=== PATIENT | female | born 1940 | race Caucasian/White ===

== ENCOUNTER 2021-10-24 19:00 | Inpatient (IN) ==
[2021-10-24 19:36] LABS: Basophils # (auto) 0.05 K/uL (0-0.2); Basophils % (auto) 0.6 %; Eosinophils # (auto) 0.07 K/uL (0-0.50); Eosinophils % (auto) 0.8 %; Hematocrit (blood only) 40.8 % (34.1-44.9); Hemoglobin 13.2 g/dl (12.0-16.0); Immature Granulocytes # (auto) 0.02 K/uL (0.00-0.02); Immature Granulocytes % (auto) 0.2 %; Lymphocytes # (auto) 3.16 K/uL (1.2-3.4); Lymphocytes % (auto) 37.6 %; Mean Corpuscular Hemoglobin 28.9 pg (25.0-34.0); Mean Corpuscular Hgb Conc 32.4 g/dL (32.0-36.0); Mean Corpuscular Volume 89.5 fL (80.0-100.0); Mean Platelet Volume 8.7 fL (9.4-12.3); Monocytes # (auto) 0.47 K/uL (0.24-0.82); Monocytes % (auto) 5.6 %; Neutrophils # (auto) 4.64 K/uL (1.4-6.5); Neutrophils % (auto) 55.2 %; Platelet Count 253 K/uL (130-400); RDW Coefficient of Variation 13.5 % (11.5-14.5); RDW Standard Deviation 44.2 fL (36.4-46.3); Red Blood Count 4.56 M/uL (3.93-5.22); White Blood Count 8.41 K/ul (4.8-10.8)
[2021-10-24 19:51] LABS: INR 0.9 (0.9-1.1); Partial Thromboplastin Ratio 0.9; Partial Thromboplastin Time 25.6 Seconds (21.0-31.0); Prothrombin Time 10.1 Seconds (9.0-12.0)
[2021-10-24 19:56] LABS: Alanine Aminotransferase 22 U/L (7-52); Albumin Globulin Ratio 1.2 (0.9-2); Albumin Level 4.1 gm/dl (3.4-5.0); Alkaline Phosphatase 109 U/L (34-104); Anion Gap 9 (3-11); Aspartate Aminotransferase 25 U/L (13-39); BUN Creatinine Ratio 22.9 (10-20); Bilirubin,Total 0.6 mg/dl (0.2-1.0); Blood Urea Nitrogen 25 mg/dl (6-23); Carbon Dioxide 21 mmol/L (21-32); Chloride 108 mmol/L (98-107); Est GFR (African American) 55.1 ml/min; Est GFR (Non-African American) 47.6 ml/min; Globulin 3.3 gm/dl (2.5-4.0); Glucose 154 mg/dl (70-99(Fasting)); Sodium 138 mmol/L (136-145); Total Protein 7.4 gm/dl (6.0-8.3)
[2021-10-24 20:04] LABS: Troponin I High Sensitivity 1513.3 pg/ml (0-14)
[2021-10-24] MEDS ORDERED: ASPIRIN CHEW 324 MG PO STA (20:18)
[2021-10-24] MEDS ORDERED: NITROGLYCERIN 2% OINTMENT 30GM TUBE EXT STA ×2 (20:20→21:04)
[2021-10-24] MEDS ORDERED: Heparin IV Adult Wt-Based Low-Dose WITH Bolus Protocol IV STA (20:20)
[2021-10-24] MEDS ORDERED: HEPARIN SOD (PORCINE) 1000 UNIT/ML IV ONE ×2 (20:35→21:15)
[2021-10-24] MEDS ORDERED: HEPARIN SODIUM/DEXTROSE 25,000 UNITS/500 ML BAG IV SCH (20:45)
[2021-10-24] MEDS ORDERED: Heparin IV Adult Wt-Based Low-Dose WITH Bolus Protocol IV SCH (20:45)
[2021-10-24] MEDS ORDERED: OPTIRAY 300 500mL IV ONE (20:52)
--- NOTE | 2021-10-24 20:59 | Emergency Department Note ---
History of Present Illness General Chief Complaint: Chest Pain Stated Complaint: POSSIBLE HEART ATTACK, CHEST PAIN, FATIGUE, Source: patient and friends (at bedside) Mode of arrival: ambulatory Limitations: no limitations History of Present Illness Provider Complaint: chest pain Onset (ago): hour(s) 10 Duration: intermittent Onset: during exertion Pain Location: substernal Severity: moderate Quality: + heaviness Relieved By: + nothing Context: + recent travel ([place], last week) Associated symptoms: + nausea and + dyspnea Treatments prior to arrival: none This patient is an 81-year-old female who presents emergency department with approximately 10 hours of substernal chest pain. Pain had a sudden onset while ambulating discharged today. The patient denies any history of heart disease. She did recently return from a trip to [place] where she states she was in "[employer], [employer] and buses." Patient denies any recent illnesses including fevers, cough, abdominal pain, vomiting or diarrhea. She states her younger brother does have 2 cardiac stents. The patient saw a physician several years ago through [facility] [place] person has since retired and she has not seen anyone since. She did not take any aspirin prior to arrival. She has not taken any medications in attempt to alleviate the discomfort. Home Medications Medication Instructions Recorded Confirmed Type apixaban 5 mg tablet (Eliquis) 5 mg PO BID #60 tabs 10/26/21 10/29/21 Rx atorvastatin 40 mg tablet 40 mg PO HS #30 tabs 10/26/21 10/29/21 Rx clopidogrel 75 mg tablet 75 mg PO QAM #30 tabs 10/26/21 10/29/21 Rx losartan 25 mg tablet 25 mg PO HS #30 tabs 10/26/21 10/29/21 Rx metoprolol succinate 25 mg 25 mg PO QAM #30 tabs 10/26/21 10/29/21 Rx tablet,extended release 24 hr adjuvant AS01B (PF)vial 1 of 2 0.5 ml IM ONCE #0.5 mL 10/29/21 10/29/21 Rx (Shingrix Adjuvant Component (PF) intramuscular suspension) Allergies Allergy/AdvReac Type Severity Reaction Status Date / Time Penicillins Allergy Mild RASH Verified 10/29/21 13:03 Poison Jeb Extract/Poison Allergy Unknown POISON Uncoded 10/29/21 13:03 [place] Extra JEB-RASH Past Med/Surg History Medical History Heart murmur Ovarian cancer Surgical History H/O: hysterectomy 2 surgeries for ovarian cancer History of cataract surgery History of surgery retina tear History of surgery 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 Family History Father Hearing loss Brother Stroke Sister Allergies Grandmother Heart disease Mother Heart disease Other Cancer Denies family history of No family history of adverse response to anesthesia No family history of bleeding disorder Hypertension Asthma Social History (Updated 10/29/21 @ 13:48 by POLINA Dao) Smoking Status: Never smoker Second Hand Exposure: Yes; Hx Alcohol Use: Yes Alcohol type: wine Alcohol Intake Frequency: Monthly or Less Hx Substance Use: No Preferred Language: Ukrainian Communication Ability: Effective Hearing Ability: Normal Check Embosser Required: No Beliefs That Will Affect Care: None marital status: / Current Living Situation: Alone current occupational status: retired Feels Safe at Home: Yes Childhood Exposure to Second-Hand Smoke: Yes caffeine: No Dental Care, Regularly: Yes Physical Activity Frequency: Daily Seatbelt Use: never Sunscreen Use: No Assistive Devices: None Review of Systems See HPI for pertinent positives & negatives. and A total of 10 systems reviewed and were otherwise negative Physical Exam Vital Signs Vital Signs - 24 hr 10/24/21 19:04 10/24/21 20:09 10/24/21 20:09 Temperature 36 C L Temperature Source Temporal Artery Scan Pulse Rate 94 H Respiratory Rate 18 Respiratory Effort / Characteristics Non-Labored Spontaneous Respiratory Depth Normal Respiratory Pattern Regular Blood Pressure 152/74 H Blood Pressure Mean 100 Pulse Oximetry 92 97 Oxygen Delivery Method Room Air Room Air Room Air Sepsis Recent Fever Within 48 Hours No Sepsis New/Unexplained Change in Mental Status N/A Sepsis Action Taken by Nursing No Action Required 10/24/21 19:08 Temperature Temperature Source Pulse Rate Respiratory Rate Respiratory Effort / Characteristics Respiratory Depth Respiratory Pattern Blood Pressure Blood Pressure Mean Pulse Oximetry Oxygen Delivery Method Room Air Sepsis Recent Fever Within 48 Hours Sepsis New/Unexplained Change in Mental Status Sepsis Action Taken by Nursing Vital signs reviewed. General: Well-appearing []81-year-old female, in no significant distress. HEENT: No scleral icterus, PERRLA, neck supple. Atraumatic. Cardiovascular: Regular rate and rhythm, no extra sounds. Pulmonary: Crackles to auscultation bilaterally, normal work of breathing. Abdomen: Soft, nontender, nondistended, positive bowel sounds. Musculoskeletal: Atraumatic, no peripheral edema. Neurologic: Patient awake alert and oriented x 3, speech is clear Skin: Warm, dry, no rash Course Administered Medications Discontinued Medications Apixaban (Apixaban 5 Mg Tablet) 5 mg PO BID [facility] Stop: 11/25/21 09:29 Last Admin: 10/26/21 11:10 Dose: 5 mg Documented By: THEO Aspirin (Aspirin Chew 324 Mg) 324 mg PO NOW [facility] Stop: 10/24/21 20:19 Last Admin: 10/24/21 20:23 Dose: 324 mg Documented By: IDALMIS Aspirin (Aspirin 81 Mg Ectab) 81 mg PO [place] Stop: 11/24/21 08:59 Last Admin: 10/26/21 08:39 Dose: 81 mg Documented By: Admin: 10/25/21 07:30 Dose: 81 mg Documented By: OSMAR Atorvastatin Calcium (Atorvastatin 40 Mg Tab) 40 mg PO [place] Stop: 11/24/21 08:59 Last Admin: 10/26/21 08:39 Dose: 40 mg Documented By: Admin: 10/25/21 07:30 Dose: 40 mg Documented By: OSMAR Clopidogrel Bisulfate (Clopidogrel Bisulfate 300 Mg Tab) Confirm Administered Dose 600 mg .ROUTE .STK-MED ONE Stop: 10/25/21 01:03 Last Admin: 10/25/21 01:07 Dose: 600 mg Documented By: CUCO Clopidogrel Bisulfate (Clopidogrel Bisulfate 75 Mg Tab) 75 mg PO [facility] Stop: 11/24/21 08:59 Last Admin: 10/26/21 08:39 Dose: 75 mg Documented By: Admin: 10/25/21 11:20 Dose: 75 mg Documented By: OSMAR Fentanyl Citrate (Fentanyl Citrate 100 Mcg/2 Ml Vial) Confirm Administered Dose 100 mcg .ROUTE .STK-MED ONE Stop: 10/25/21 00:07 Last Admin: 10/25/21 06:43 Dose: Not Given Documented By: ABHISHEK Furosemide (Furosemide 40 Mg/4 Ml Vial) 40 mg IV ONE ONE Stop: 10/24/21 21:04 Last Admin: 10/24/21 21:09 Dose: 40 mg Documented By: SS Heparin Sodium (Porcine) (Heparin Sod (Porcine) 1000 Unit/Ml) 3,000 units IV NOW ONE Stop: 10/24/21 21:16 Last Admin: 10/24/21 21:16 Dose: 3,000 units Documented By: SS Co-signed By: JUNIOR Heparin Sodium (Porcine) (Heparin (Porcine) 1000 Unit/Ml 10 Ml ([employer] Combination Use Onl y)) Confirm Administered Dose 10,000 units .ROUTE .STK-MED ONE Stop: 10/25/21 00:07 Last Admin: 10/25/21 06:44 Dose: Not Given Documented By: CR Heparin Sodium/Dextrose (Heparin Iv Adult Wt-Based Low-Dose With Bolus Protocol) 1 each IV NOW STA; Protocol Stop: 10/24/21 20:21 Last Admin: 10/24/21 21:29 Dose: Not Given Documented By: SS Heparin Sodium/Sodium Chloride (Heparin In Nss Infusion 1000 Unit/500 Ml (2 U/Ml) Bag) Confirm Administered Dose 3,000 units IV .STK-MED ONE Stop: 10/25/21 00:07 Last Admin: 10/25/21 06:44 Dose: Not Given Documented By: CR Heparin Sodium/Dextrose (Heparin Sodium/Dextrose) 25,000 units in 500 mls @ 13 mls/hr IV .Q24H IQRA; Protocol Stop: 11/23/21 20:44 Last Titration: 10/25/21 07:44 Dose: 0 units/hr, 0 mls/hr Documented By: FARRAH Co-signed By: LEMUEL Admin: 10/24/21 21:17 Dose: 650 units/hr, 13 mls/hr Documented By: SS Co-signed By: JUNIOR Ioversol (Optiray 300 500ml) 114 ml IV ONCE ONE Stop: 10/24/21 20:53 Last Admin: 10/24/21 20:52 Dose: 114 ml Documented By: YUMIKO Losartan Potassium (Losartan Potassium 25 Mg Tab) 25 mg PO QAM IQRA Stop: 11/24/21 08:59 Last Admin: 10/26/21 08:38 Dose: 25 mg Documented By: Admin: 10/25/21 08:47 Dose: Not Given Documented By: OO Metoprolol Tartrate (Metoprolol Tartrate 25 Mg Tab) 12.5 mg PO BID IQRA Stop: 11/24/21 08:59 Last Admin: 10/26/21 08:38 Dose: 12.5 mg Documented By: Admin: 10/25/21 20:38 Dose: 12.5 mg Documented By: Admin: 10/25/21 08:47 Dose: Not Given Documented By: OO Midazolam HCl (Midazolam Hcl 1 Mg/Ml 2ml Vial) Confirm Administered Dose 2 mg .ROUTE .STK-MED ONE Stop: 10/25/21 00:07 Last Admin: 10/25/21 06:44 Dose: Not Given Documented By: CR Nicardipine HCl (Nicardipine Hcl Inj 2.5 Mg/Ml 10 Ml Amp) Confirm Administered Dose 25 mg .ROUTE .STK-MED ONE Stop: 10/25/21 00:07 Last Admin: 10/25/21 06:45 Dose: Not Given Documented By: CR Nitroglycerin (Nitroglycerin 2% Ointment 30gm Tube) 0.5 inch EXT NOW STA Stop: 10/24/21 20:21 Last Admin: 10/24/21 20:24 Dose: 0.5 inch Documented By: SS Nitroglycerin (Nitroglycerin 2% Ointment 30gm Tube) 1 inch EXT NOW STA Stop: 10/24/21 21:05 Last Admin: 10/24/21 21:09 Dose: 1 inch Documented By: SS Nitroglycerin/Dextrose (Nitroglycerin/D5w 100mcg/Ml 20ml Syr) Confirm Admi nistered Dose 2,000 mcg .ROUTE .STK-MED ONE Stop: 10/25/21 00:08 Last Admin: 10/25/21 06:45 Dose: Not Given Documented By: CR Medical Decision Making Differential Diagnosis Cardiac ischemia, aortic dissection, pulmonary embolism, pneumothorax, pneumonia, pericarditis, myocarditis, esophageal rupture, GERD, cholecystitis, pancreatitis, musculoskeletal, as well as other pathologies. Medical Records Attestation: I reviewed the patient's medical records. Home Medications Current Medication List: was personally reviewed by me Laboratory Data Attestation: I reviewed the patient's lab results. Result diagrams: 10/26/21 05:57 10/26/21 05:57 Labs: Lab Results 10/24/21 10/24/21 10/24/21 Range/Units :22 19:22 19:22 WBC 8.41 (4.8-10.8) K/ul RBC 4.56 (3.93-5.22) M/uL Hgb 13.2 (12.0-16.0) g/dl Hct 40.8 (34.1-44.9) % MCV 89.5 (80.0-100.0) fL MCH 28.9 (25.0-34.0) pg MCHC 32.4 (32.0-36.0) g/dL RDW Std Deviation 44.2 (36.4-46.3) fL RDW Coeff of Dash 13.5 (11.5-14.5) % Plt Count 253 (130-400) K/uL MPV 8.7 L (9.4-12.3) fL Immature Gran % (Auto) 0.2 % Neut % (Auto) 55.2 % Lymph % (Auto) 37.6 % [place] % (Auto) 5.6 % Eos % (Auto) 0.8 % Baso % (Auto) 0.6 % Neut # (Auto) 4.64 (1.4-6.5) K/uL Lymph # (Auto) 3.16 (1.2-3.4) K/uL [place] # (Auto) 0.47 (0.24-0.82) K/uL Eos # (Auto) 0.07 (0-0.50) K/uL Baso # (Auto) 0.05 (0-0.2) K/uL Immature Gran # (Auto) 0.02 (0.00-0.02) K/uL PT 10.1 (9.0-12.0) Seconds INR 0.9 (0.9-1.1) APTT 25.6 (21.0-31.0) Seconds PTT Ratio 0.9 ABG pH (7.35-7.45) ABG pCO2 (35-46) mmHg ABG pO2 (80-95) mmHg ABG HCO3 (19-24) mmol/L ABG O2 Saturation (90-95) % ABG Base Excess (-9-1.8) mEq/L Yohan Test (Pos) Oxygen Given Sodium 138 (136-145) mmol/L Potassium 4.0 (3.5-5.1) mmol/L Chloride 108 H (98-107) mmol/L Carbon Dioxide 21 (21-32) mmol/L Anion Gap 9 (3-11) BUN 25 H (6-23) mg/dl Creatinine 1.09 (0.6-1.2) mg/dl Est Cr Clr Drug Dosing Not Reportable Est GFR ( Amer) 55.1 ml/min Est GFR (Non-Af Amer) 47.6 ml/min BUN/Creatinine Ratio 22.9 H (10-20) Glucose 154 H (70-99(Fasting)) mg/dl Estimat Average Glucose mg/dl Hemoglobin A1c (4.5-5.6) % Calcium 9.0 (8.5-10.1) mg/dl Total Bilirubin 0.6 (0.2-1.0) mg/dl AST 25 (13-39) U/L ALT 22 (7-52) U/L Alkaline Phosphatase 109 H (34-104) U/L Troponin I High Sens 1513.3 H* (0-14) pg/ml B-Natriuretic Peptide (0-100) pg/ml Total Protein 7.4 (6.0-8.3) gm/dl Albumin 4.1 (3.4-5.0) gm/dl Globulin 3.3 (2.5-4.0) gm/dl Albumin/Globulin Ratio 1.2 (0.9-2) Triglycerides (0-150) mg/dl Cholesterol (0-200) mg/dl LDL Cholesterol, Calc mg/dl VLDL Cholesterol, Calc (0-30) mg/dl HDL Cholesterol mg/dl Cholesterol/HDL Ratio (0-5) SARS-CoV-2, RNA, NAAT (NEGATIVE) 10/24/21 10/24/21 10/24/21 Range/Units 19:22 19:22 21:28 WBC (4.8-10.8) K/ul RBC (3.93-5.22) M/uL Hgb (12.0-16.0) g/dl Hct (34.1-44.9) % MCV (80.0-100.0) fL MCH (25.0-34.0) pg MCHC (32.0-36.0) g/dL RDW Std Deviation (36.4-46.3) fL RDW Coeff of Dash (11.5-14.5) % Plt Count (130-400) K/uL MPV (9.4-12.3) fL Immature Gran % (Auto) % Neut % (Auto) % Lymph % (Auto) % [place] % (Auto) % Eos % (Auto) % Baso % (Auto) % Neut # (Auto) (1.4-6.5) K/uL Lymph # (Auto) (1.2-3.4) K/uL [place] # (Auto) (0.24-0.82) K/uL Eos # (Auto) (0-0.50) K/uL Baso # (Auto) (0-0.2) K/uL Immature Gran # (Auto) (0.00-0.02) K/uL PT (9.0-12.0) Seconds INR (0.9-1.1) APTT (21.0-31.0) Seconds PTT Ratio ABG pH (7.35-7.45) ABG pCO2 (35-46) mmHg ABG pO2 (80-95) mmHg ABG HCO3 (19-24) mmol/L ABG O2 Saturation (90-95) % ABG Base Excess (-9-1.8) mEq/L Yohan Test (Pos) Oxygen Given Sodium (136-145) mmol/L Potassium (3.5-5.1) mmol/L Chloride (98-107) mmol/L Carbon Dioxide (21-32) mmol/L Anion Gap (3-11) BUN (6-23) mg/dl Creatinine (0.6-1.2) mg/dl Est Cr Clr Drug Dosing Est GFR ( Amer) ml/min Est GFR (Non-Af Amer) ml/min BUN/Creatinine Ratio (10-20) Glucose (70-99(Fasting)) mg/dl Estimat Average Glucose 123 mg/dl Hemoglobin A1c 5.9 H (4.5-5.6) % Calcium (8.5-10.1) mg/dl Total Bilirubin (0.2-1.0) mg/dl AST (13-39) U/L ALT (7-52) U/L Alkaline Phosphatase (34-104) U/L Troponin I High Sens (0-14) pg/ml B-Natriuretic Peptide (0-100) pg/ml Total Protein (6.0-8.3) gm/dl Albumin (3.4-5.0) gm/dl Globulin (2.5-4.0) gm/dl Albumin/Globulin Ratio (0.9-2) Triglycerides 118 (0-150) mg/dl Cholesterol 324 H (0-200) mg/dl LDL Cholesterol, Calc 228 mg/dl VLDL Cholesterol, Calc 24 (0-30) mg/dl HDL Cholesterol 72 mg/dl Cholesterol/HDL Ratio 4.5 (0-5) SARS-CoV-2, RNA, NAAT NEGATIVE (NEGATIVE) 10/24/21 10/24/21 10/24/21 Range/Units 21:33 21:33 22:11 WBC (4.8-10.8) K/ul RBC (3.93-5.22) M/uL Hgb (12.0-16.0) g/dl Hct (34.1-44.9) % MCV (80.0-100.0) fL MCH (25.0-34.0) pg MCHC (32.0-36.0) g/dL RDW Std Deviation (36.4-46.3) fL RDW Coeff of Dash (11.5-14.5) % Plt Count (130-400) K/uL MPV (9.4-12.3) fL Immature Gran % (Auto) % Neut % (Auto) % Lymph % (Auto) % [place] % (Auto) % Eos % (Auto) % Baso % (Auto) % Neut # (Auto) (1.4-6.5) K/uL Lymph # (Auto) (1.2-3.4) K/uL [place] # (Auto) (0.24-0.82) K/uL Eos # (Auto) (0-0.50) K/uL Baso # (Auto) (0-0.2) K/uL Immature Gran # (Auto) (0.00-0.02) K/uL PT (9.0-12.0) Seconds INR (0.9-1.1) APTT (21.0-31.0) Seconds PTT Ratio ABG pH 7.41 (7.35-7.45) ABG pCO2 31 L (35-46) mmHg ABG pO2 92 (80-95) mmHg ABG HCO3 20 (19-24) mmol/L ABG O2 Saturation 98.4 H (90-95) % ABG Base Excess -4.0 (-9-1.8) mEq/L Yohan Test Pos (Pos) Oxygen Given 35% Sodium (136-145) mmol/L Potassium (3.5-5.1) mmol/L Chloride (98-107) mmol/L Carbon Dioxide (21-32) mmol/L Anion Gap (3-11) BUN (6-23) mg/dl Creatinine (0.6-1.2) mg/dl Est Cr Clr Drug Dosing Est GFR ( Amer) ml/min Est GFR (Non-Af Amer) ml/min BUN/Creatinine Ratio (10-20) Glucose (70-99(Fasting)) mg/dl Estimat Average Glucose mg/dl Hemoglobin A1c (4.5-5.6) % Calcium (8.5-10.1) mg/dl Total Bilirubin (0.2-1.0) mg/dl AST (13-39) U/L ALT (7-52) U/L Alkaline Phosphatase (34-104) U/L Troponin I High Sens 1785.1 H* (0-14) pg/ml B-Natriuretic Peptide 844 H (0-100) pg/ml Total Protein (6.0-8.3) gm/dl Albumin (3.4-5.0) gm/dl Globulin (2.5-4.0) gm/dl Albumin/Globulin Ratio (0.9-2) Triglycerides (0-150) mg/dl Cholesterol (0-200) mg/dl LDL Cholesterol, Calc mg/dl VLDL Cholesterol, Calc (0-30) mg/dl HDL Cholesterol mg/dl Cholesterol/HDL Ratio (0-5) SARS-CoV-2, RNA, NAAT (NEGATIVE) Blood Pressure Blood Pressure Findings: Elevated blood pressure Blood Pressure Disposition: further management by hospitalist MDM Narrative This patient was evaluated and appeared to be in some discomfort. IV access was obtained and laboratory work was drawn. Patient's laboratory work had been resulted prior to my evaluation and a notable elevation in the troponin was clear. EKG reveals nonspecific ST changes. Patient was started on a heparin drip, she was given nitroglycerin for some respiratory discomfort and congestion on chest x-ray. IV Lasix was ordered. Patient was given supplemental oxygen and ordered BiPAP. She had been given aspirin by mouth. COVID test was performed and negative. Review of the chest was performed to rule out PE due to the recent travel to [place] and shortness of breath. Study was negative. The hospitalist service, Dr. Moreno and resident, were consulted immediately for admission and further management. Impression & Plan Non-ST elevation (NSTEMI) myocardial infarction, Acute respiratory failure with hypoxia, Congestive heart failure (CHF) Critical Care Time Critical Care Time: Yes Total Critical Care Time: 35 I have personally spent greater than 35 minutes of critical care time in the direct management of this patient. This includes bedside care, interpretation of diagnostic studies, and testing, discussion with consultants, patient, and family members, and other required patient management activities. This 35 minut es is in excess of all separately billable procedures. Discharge Plan Visit Data Chief Complaint: Chest Pain Stated Complaint: POSSIBLE HEART ATTACK, CHEST PAIN, FATIGUE, ED Provider: Lucy Szymanski Discharge Problem: Non-ST elevation (NSTEMI) myocardial infarction, Acute respiratory failure with hypoxia, Congestive heart failure (CHF) Patient Disposition: Admitted As Inpatient Discharge Instructions Interventions: ED Discharge Assessment Last Done: 10/25/21 00:07
[2021-10-24] MEDS ORDERED: FUROSEMIDE 40 MG/4 ML VIAL IV ONE (21:03)
[2021-10-24] MEDS ORDERED: NITROGLYCERIN SL 0.4 MG/TAB TAB SL PRN (21:27)
[2021-10-24 21:47] LABS: HCO3 ABG 20 mmol/L (19-24); Oxygen Saturation ABG 98.4 % (90-95); PCO2 ABG 31 mmHg (35-46); PO2 ABG 92 mmHg (80-95); pH ABG 7.41 (7.35-7.45)
[2021-10-24 21:52] LABS: Allen Test Pos (Pos)
--- NOTE | 2021-10-24 21:56 | History & Physical Report ---
Date of Service October 24, 2021 Assessment & Plan (1) Non-ST elevation (NSTEMI) myocardial infarction: Plan: 81-year-old female without a reported medical history who presented to [facility] for evaluation of substernal chest pain and elevated tr oponin, with subsequent development of hypoxia secondary to pulmonary edema while in the ED. 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 Interstitial edema in the lungs. tiny left pleural effusion. Heart and aorta are unremarkable. No evidence of pneumonia" - Trend troponin - Continue heparin gtt ; received ASA 324 in the ED - Continue nitropaste, morphine PRN - Continue supplemental O2 to maintain SpO2 >94% - Hold on starting BB right now given c/f acute CHF - Check lipids, A1c - TTE ordered - Case discussed with Dr. Arce, interventional cardiology; given her concerning symptoms/presentation, progressive anterior TWAs on serial ECGs, and rising troponins, will proceed with HEART Alert protocol (2) Acute respiratory failure with hypoxia: Plan: Acute Hypoxic Respiratory Failure - Interval development of AHRF following arrival at ED, associated with respiratory distress and orthopnea - CTA: See above. No PE. Pulmonary Edema - Suspect secondary to acute CHF, likely d/t ACS - Lasix 40mg IV x 1 given in ED - will give additional dose as BP allows - Continue CPAP - escalate PRN - Continue nitropaste - Monitor I&O, daily weights - Will likely require fluid, salt restriction when not NPO Plan Diet: NPO Dispo: PCU PPX: Ongoing heparin gtt Code status: Conditional - ok for CPR and cardiac meds/defib, NO intubation, OK for external ventilation. Extensive discussion held at bedside regarding the process of CPR and importance of intubation; she is ok with all interventions except intubation and mechanical ventilation. History of Present Illness Primary Care Provider: NO PCP Patient is a very pleasant 81-year-old female who presented to [facility] for evaluation of substernal chest pain. She said she was at her gnosticism when she began having a very severe, pressure-like substernal chest pain that radiated towards the left side of her chest. She denies ever having this before or any significant heart history. She denies any shortness of breath at that time. When asked if it was worse by exertion, she said "I did not think I was going to make it "walking up the stairs to her gnosticism because the pain and fatigue got worse. She said it got better with rest. Otherwise, denies any radiation to the arm or face, no recent leg pain, no nausea, vomiting, fever, chills, night sweats, or other symptoms. Patient was recently in [place] where she was traveling extensively on planes, trains, and buses. She denies any history of clots, and again, denies any sort of leg discomfort or swelling. Before today, she felt like she was in her normal health. She had no issues sleeping last night. No PND or orthopnea. No dietary changes. In the ED, patient was initially found to be tachycardic and hypertensive to 94 bpm and 152/74, saturating at 92% on room air. She was brought back to the CT scanner for a CT of the chest, when she reported significant shortness of breath when she lie down. This required initiation of supplemental oxygen. Her shortness of breath improved with sitting up. Her admission labs were notable for ABGpH 7.41/PCO2 31/PO2 92/P HCO3 20 on 35% CPAP. Her BMP demonstrated BUN 25/creatinine 1.09. Her initial troponin was 1513. Chest x-ray had the appearance of pulmonary edema, as did the CTA. CTA stat rad revealed: "". By comparison to ECG taken at 1917, repeat ECG at 2116 appears to demonstrate small interval increases in the ST segment in V2, V3. She was given Nitropaste, Lasix 40 mg IV, started on heparin with IV bolus. Allergies Allergy/AdvReac Type Severity Reaction Status Date / Time Penicillins Allergy Mild RASH Verified 03/15/21 09:46 Poison Jeb Extract/Poison Allergy Unknown POISON Uncoded 03/15/21 09:46 [place] Extra JEB-RASH Home Medications Medication Instructions Recorded Confirmed Type No Known Home Medications 03/10/20 03/15/21 History Past Med/Surg History Medical History Heart murmur Ovarian cancer Surgical History H/O: hysterectomy 2 surgeries for ovarian cancer History of cataract surgery History of surgery retina tear History of surgery 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 Family History Father Hearing loss Brother Stroke Sister Allergies Grandmother Heart disease Mother Heart disease Other Cancer Denies family history of No family history of adverse response to anesthesia No family history of bleeding disorder Hypertension Asthma Social History Smoking Status: Never smoker Second Hand Exposure: Yes; Do You Dip or Chew Tobacco: No; Tobacco Cessation Education Requested by Patient: No Hx Alcohol Use: Yes Alcohol type: wine Alcohol Intake Frequency: Monthly or Less Hx Substance Use: No Preferred Language: Zambian Communication Ability: Effective Dye Boarding Machine Operator Required: No Beliefs That Will Affect Care: None marital status: / Current Living Situation: Alone current occupational status: retired Other Information That Helps Us Care for You: No Feels Safe at Home: Yes Safety Concerns: Feels Safe At This Time Assistive Devices: Glasses and Hospital Bed Review of Systems Review of Systems: as per HPI Physical Exam Physical Exam: General: 81-year old female who appears in mild distress secondary to pain HEENT: NCAT. - Eyes - Sclera are white, anicteric, and without injection. - Mouth - MMM - Neck - supple, no appreciable JVD Cardiac: Normal rate and regular rhythm; S1 and S2 present with no murmurs, rubs, or gallops. Pulmonary: Good respiratory effort with symmetric expansion of the chest. Mildly increased effort. No use of accessory muscles. Lungs demonstrated bilateral crackles throughout all hightower. Abdominal: Normoactive bowel sounds. Abdomen was soft, nondistended, and non- tender to palpation. Extremities: Upper and lower extremities are warm and well perfused. No peripheral edema in the lower extremities bilaterally Results & Data Results & Data ([facility]) Vital Signs (Past 12 Hours) Vital Signs Temp Pulse Resp BP Pulse Ox O2 Del Method FiO2 10/24/21 21:30 91 H 29 H 99 10/24/21 21:30 151/95 H 10/24/21 21:20 90 26 H 98 10/24/21 21:17 174/85 H 10/24/21 21:17 88 23 99 10/24/21 21:16 169/115 H 10/24/21 21:16 93 H 23 97 10/24/21 21:10 99 H 20 97 10/24/21 21:03 14 90 10/24/21 21:03 148/120 H 10/24/21 21:02 99 H 15 93 10/24/21 20:46 86 24 95 10/24/21 21:38 89 33 H 97 35 10/24/21 20:45 151/79 H 10/24/21 20:45 93 H 28 H 93 10/24/21 20:30 90 32 H 92 10/24/21 20:30 132/101 H 10/24/21 19:08 Room Air 10/24/21 20:09 Room Air 10/24/21 20:09 97 Room Air 10/24/21 19:04 36 C L 94 H 18 152/74 H 92 Room Air Code Status & VTE Plan VTE Prophylaxis Plan VTE Prophylaxis will be ordered: No Supervising Physician Co-Signing Physician Notes Attending addendum: I have physically seen this patient, have supervised the medical residents activities, and agree with the H&P unless as otherwise noted. Assessment and Plan: Acute non-STEMI- Troponin initially 15.3 with subsequent increase Patient admitted received aspirin 324 mg, and was started heparin IV and f urosemide IV. EKG suggestive of early changes in LAD. After Case was discussed with interventionalist Dr. Ab Arce, patient was taken emergently to Telegraph Service Clerk, he was found to have a 90% acute focal stenosis after D1, that was fixed with a single drug-eluting stent Patient was then taken to telemetry for follow-up care Continuing cardiology medications per Dr. Arce. Critical care time was 40 minutes Resident Activity Tracking Resident Involvement: Resident Care Provided Care Provided: Adult Hospital Medicine
[2021-10-24 22:49] LABS: Chol HDL Ratio 4.5 (0-5)
[2021-10-25] MEDS ORDERED: HEPARIN (PORCINE) 1000 UNIT/ML 10 ML (CATH LAB USE ONLY) ONE (00:06)
[2021-10-25] MEDS ORDERED: fentaNYL citrate 100 MCG/2 ML VIAL ONE (00:06)
[2021-10-25] MEDS ORDERED: MIDAZOLAM HCL 1 MG/ML 2ML VIAL ONE (00:06)
[2021-10-25] MEDS ORDERED: niCARdipine HCL INJ 2.5 MG/ML 10 ML AMP ONE (00:06)
[2021-10-25] MEDS ORDERED: NITROGLYCERIN/D5W 100MCG/ML 20ML SYR ONE (00:07)
--- NOTE | 2021-10-25 00:21 | Pre Anesthesia Assessment ---
Date of Service October 25, 2021 Pre Sedation Assessment Vital Signs Temp Pulse Resp BP Pulse Ox O2 Del Method O2 Flow Rate 10/24/21 23:45 82 28 H 95 Nasal Cannula 4 10/24/21 23:45 122/76 10/24/21 23:30 86 22 96 10/24/21 23:30 124/76 10/24/21 23:15 83 24 97 10/24/21 23:15 126/77 10/24/21 23:00 91 H 23 97 10/24/21 23:00 120/78 10/24/21 22:45 90 23 97 10/24/21 22:45 140/91 10/24/21 22:30 91 H 25 H 95 10/24/21 22:30 132/102 H 10/24/21 22:15 91 H 17 95 10/24/21 22:15 136/81 10/24/21 22:00 95 H 29 H 93 10/24/21 22:00 144/89 H 10/24/21 21:45 146/81 H 10/24/21 21:45 102 H 27 H 97 CPAP 10/24/21 21:30 91 H 29 H 99 10/24/21 21:30 151/95 H 10/24/21 21:20 90 26 H 98 10/24/21 21:17 174/85 H 10/24/21 21:17 88 23 99 10/24/21 21:16 169/115 H 10/24/21 21:16 93 H 23 97 10/24/21 21:10 99 H 20 97 10/24/21 21:03 14 90 10/24/21 21:03 148/120 H 10/24/21 21:02 99 H 15 93 10/24/21 20:46 86 24 95 10/24/21 21:38 89 33 H 97 10/24/21 20:45 151/79 H 10/24/21 20:45 93 H 28 H 93 10/24/21 20:30 90 32 H 92 10/24/21 20:30 132/101 H 10/24/21 19:08 Room Air 10/24/21 20:09 Room Air 10/24/21 20:09 97 Room Air 10/24/21 19:04 96.8 F L 94 H 18 152/74 H 92 Room Air FiO2 10/24/21 23:45 10/24/21 23:45 10/24/21 23:30 10/24/21 23:30 10/24/21 23:15 10/24/21 23:15 10/24/21 23:00 10/24/21 23:00 10/24/21 22:45 10/24/21 22:45 10/24/21 22:30 10/24/21 22:30 10/24/21 22:15 10/24/21 22:15 10/24/21 22:00 10/24/21 22:00 10/24/21 21:45 10/24/21 21:45 10/24/21 21:30 10/24/21 21:30 10/24/21 21:20 10/24/21 21:17 10/24/21 21:17 10/24/21 21:16 10/24/21 21:16 10/24/21 21:10 10/24/21 21:03 10/24/21 21:03 10/24/21 21:02 10/24/21 20:46 10/24/21 21:38 35 10/24/21 20:45 10/24/21 20:45 10/24/21 20:30 10/24/21 20:30 10/24/21 19:08 10/24/21 20:09 10/24/21 20:09 10/24/21 19:04 Cardiovascular RRR, no murmur, no edema Respiratory normal respiratory effort, lungs clear to auscultation Pre-Sedation Airway Assessment Smoking Status: Never smoker Hx Sleep Apnea: No Hx Difficult Intubation: No Short, Thick Neck: No Thyromental Distance: > or= 3.5 Finger Breadths Oral Cavity: + WNL Mallampati Class: III ASA: ASA4 Procedure Planning Contraindications for Sedation: none Current Medications Reviewed: Yes Notes The planned sedation has been discussed with the patient. Informed Consent was obtained. I have identified the patient, determined the appropriateness of sedation and have assessed the patient immediately prior to the procedure. All medicine(s) and interventions are by my order.
--- NOTE | 2021-10-25 00:22 | Cardiology Consultation ---
Date of Consultation October 25, 2021 Assessment & Plan (1) Non-ST elevation (NSTEMI) myocardial infarction: Presentation consistent with high risk ACS and recommend proceeding with urgent cardiac catheterization and likely primary PCI. No apparent contraindications to procedure. Discussed risks, benefits, alternatives of procedure with patient and they are willing to proceed. Given IV heparin in the ED. Further recommendations pending findings of coronary angiography. History of Present Illness History of Present Illness 81-year-old woman here with acute chest pain and elevated troponin/ECG changes consistent with high risk NSTEMI. Patient seen emergently in the ED after heart alert activated after serial ECG changes. No prior cardiac history. Patient is on no medications currently and denies any other medical issues. She is active at baseline walking 2-1/2 miles almost every day. Recently returned from a trip to [place] where he walked without symptoms. Was able to mow the lawn with a push mower yesterday without symptoms. This morning when walking to gnosticism she noticed new exertional shortness of breath. Symptoms persisted until this afternoon when developed new left-sided chest pain. Due to persistent symptoms presented to ED this evening where initial ECG showed sinus rhythm with subtle ST deviation in V2, V3. Initial hstrop 1500. Underwent CTA which was negative for PE but on transport developed acute shortness of breath secondary to flash pulmonary edema which initially required CPAP and responded to IV Lasix. Subsequent ECG showed new borderline ST elevation in V3, V4, V5 and heart alert activated. Social history: Lives independently. . Retired high school english teacher. Denies tobacco or heavy alcohol. Family history: Brother age 65 recently had 2 stents. Allergies Allergy/AdvReac Type Severity Reaction Status Date / Time Penicillins Allergy Mild RASH Verified 03/15/21 09:46 Poison Jeb Extract/Poison Allergy Unknown POISON Uncoded 03/15/21 09:46 [place] Extra JEB-RASH Home Medications Medication Instructions Recorded Confirmed Type No Known Home Medications 03/10/20 03/15/21 History Patient History Medical History Heart murmur Ovarian cancer Surgical History H/O: hysterectomy 2 surgeries for ovarian cancer History of cataract surgery History of surgery retina tear History of surgery 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 Family History Father Hearing loss Brother Stroke Sister Allergies Grandmother Heart disease Mother Heart disease Other Cancer Denies family history of No family history of adverse response to anesthesia No family history of bleeding disorder Hypertension Asthma Social History Smoking Status: Never smoker Hx Alcohol Use: Yes Alcohol type: wine Alcohol Intake Frequency: Monthly or Less Hx Substance Use: No Preferred Language: Micronesian Communication Ability: Effective marital status: / current occupational status: retired Feels Safe at Home: Yes Review of Systems Review of Systems: All systems reviewed & are unremarkable except as noted in HPI & below Physical Exam Physical Exam: General: Comfortable HEENT: Sclerae anicteric Lungs: Clear anteriorly Cardiac: Distant heart sounds regular rate and rhythm, no murmurs. Vascular: 2+ radial bilaterally Abdomen: Soft, nontender Extremities: Well perfused, no peripheral edema Neuro: Nonfocal Psych: Alert orient x3, normal affect and mood Results & Data ([facility]) Vital Signs (Past 12 Hours) Vital Signs Temp Pulse Resp BP Pulse Ox O2 Del Method O2 Flow Rate 10/24/21 23:45 82 28 H 95 Nasal Cannula 4 10/24/21 23:45 122/76 10/24/21 23:30 86 22 96 10/24/21 23:30 124/76 10/24/21 23:15 83 24 97 10/24/21 23:15 126/77 10/24/21 23:00 91 H 23 97 10/24/21 23:00 120/78 10/24/21 22:45 90 23 97 10/24/21 22:45 140/91 10/24/21 22:30 91 H 25 H 95 10/24/21 22:30 132/102 H 10/24/21 22:15 91 H 17 95 10/24/21 22:15 136/81 10/24/21 22:00 95 H 29 H 93 10/24/21 22:00 144/89 H 10/24/21 21:45 146/81 H 10/24/21 21:45 102 H 27 H 97 CPAP 10/24/21 21:30 91 H 29 H 99 10/24/21 21:30 151/95 H 09/18/22 21:20 90 26 H 98 10/24/21 21:17 174/85 H 10/24/21 21:17 88 23 99 10/24/21 21:16 169/115 H 10/24/21 21:16 93 H 23 97 10/24/21 21:10 99 H 20 97 10/24/21 21:03 14 90 10/24/21 21:03 148/120 H 10/24/21 21:02 99 H 15 93 10/24/21 20:46 86 24 95 10/24/21 21:38 89 33 H 97 10/24/21 20:45 151/79 H 10/24/21 20:45 93 H 28 H 93 10/24/21 20:30 90 32 H 92 10/24/21 20:30 132/101 H 10/24/21 19:08 Room Air 10/24/21 20:09 Room Air 10/24/21 20:09 97 Room Air 10/24/21 19:04 96.8 F L 94 H 18 152/74 H 92 Room Air FiO2 10/24/21 23:45 10/24/21 23:45 10/24/21 23:30 10/24/21 23:30 10/24/21 23:15 10/24/21 23:15 10/24/21 23:00 10/24/21 23:00 10/24/21 22:45 10/24/21 22:45 10/24/21 22:30 10/24/21 22:30 10/24/21 22:15 10/24/21 22:15 10/24/21 22:00 10/24/21 22:00 10/24/21 21:45 10/24/21 21:45 10/24/21 21:30 10/24/21 21:30 10/24/21 21:20 10/24/21 21:17 10/24/21 21:17 10/24/21 21:16 10/24/21 21:16 10/24/21 21:10 10/24/21 21:03 10/24/21 21:03 10/24/21 21:02 10/24/21 20:46 10/24/21 21:38 35 10/24/21 20:45 10/24/21 20:45 10/24/21 20:30 10/24/21 20:30 10/24/21 19:08 10/24/21 20:09 10/24/21 20:09 10/24/21 19:04 PG Care Time/CCT Total # of Minutes Spent Total Time Spent with Patient: Total time spent is greater than 50% in coordination of care (as documented) at patient's floor/unit and/or counseling patient: Coding Level of Care Code 21041 Initial Inpt Care Lvl 3 Diagnoses Non-ST elevation (NSTEMI) myocardial infarction I21.4
[2021-10-25] MEDS ORDERED: CLOPIDOGREL BISULFATE 300 MG TAB ONE (01:02)
[2021-10-25] MEDS ORDERED: ACETAMINOPHEN 325 MG TAB PO PRN (01:07)
[2021-10-25] MEDS ORDERED: ONDANSETRON INJ 2 MG/ML 2 ML VIAL IV PRN (01:07)
--- NOTE | 2021-10-25 01:26 | Cardiac Catheterization ---
[facility] Data: Inspector Repairer [place] Cardiac Status Clinical evaluation leading to the procedure CAD Presenation: Non STEMI Anginal Classification: CCS IV Diagnostic Physicians Name: Ab Arce MD Closure Device Recommendations: PCI without planned CABG Cardiac Cath Procedure Full Procedure Date October 25, 2021 Pre-Procedure Diagnosis Pre-Procedure Diagnosis: Non STEMI AUC Score AUC Score: 8 Post-Procedure Diagnosis Post-Procedure Diagnosis: Severe CAD, Successful PCI and Normal Intracardiac Pressures Procedure(s) Performed Procedure(s) Performed: Coronary Angiography, Left Heart Cath and Drug Eluting Stent Office Machines Teacher Ab Arce MD Integrated Circuits Inspector(s) [place] Estimated Blood Loss Estimated Blood Loss: 15 Medication(s) Medication(s): Clopidogrel, Fentanyl, Heparin, Lidocaine 1%, Nicardipine, Nitroglycerin and Versed Summary of Findings Indication: High risk NSTEMI, acute heart failure Access: 6 Fr right radial artery Catheters: [place], EBU 3.5 guide, pigtail Findings: LM -normal caliber, angiographically normal LAD -medium caliber, 98% acute focal stenosis after D1. Remainder of vessel without significant disease and wraps around apex with ABHINAV I-II flow. Medium D1 without significant disease. Ramusmedium caliber, 30% ostial, no other significant disease. Circumflex -medium caliber, 20 to 30% ostial, no other significant disease. Small OM1/left PLB without significant disease. RCA -medium caliber, no significant disease. Gives off small RPDA. LVEDP -17 -- PCI -- Antithrombotic therapy: Heparin, clopidogrel Procedure: Left main cannulated with EBU 3.5 guide Pre-procedure flow ABHINAV 1-2 Syrup Shed Supervisor 50 wire passed across lesion into distal vessel Mid LAD lesion predilated with 2.5 compliant balloon Dilated lesion stented with 3.0 x 18 mm Demetris drug-eluting stent Stent post-dilated with 3.5 noncompliant balloon IC vasodilators administered for spasm Post procedure ABHINAV 3 flow, stent well expanded with minimal residual stenosis and no apparent cardiac complications. Arterial Closure: TR band Summary: 1. Severe single vessel coronary artery disease -Acute 98% mid LAD stenosis with ABHINAV I-II distal flow 2. Borderline intracardiac filling pressure (LVEDP 17) 3. Successful PCI of mid LAD with single drug-eluting stent (3.0 x 18 mm [place]; postdilated with 3.5 NC) Recommendations: To PCU for continued monitoring Trend troponin until peak, echocardiogram in morning Loaded with clopidogrel 600 mg in Inspector Repairer [place] Continue dual-antiplatelet therapy for at least 1 year Start statin, beta-surjit, ARB Consult cardiac Rehab Hemodynamics Rest Ao:: 88/52/70 Final Ao: 146/77/110 LV: 137/17 Recommendations Recommendations: PCI without planned CABG Specimens Specimens: None Radiation Exposure (mGy) 1269 Contrast (mls) 90 Anesthesia Moderate 4403-6565 Procedural Complication(s) None Disposition PCU I attest to the content of the Intraoperative Record and any orders documented therein. Any exceptions are noted below. [facility] Card Cath Procedure Codes Cardiac Catheterization Procedure 1: Cardiovascular Cath Procedures: 23431 Coronaries and LHC (+/-LV) Moderate Sedation Procedure 1: Sedation/Anesthesia: 26863 Mod Sedation by the same physician;Init15 Min Child Age 5 & Up Stenting Procedure 1: Cardiovascular Stent Procedures: 36691 Perc transluminal revascularization of acute sub/total occl, aMI PG Care Time/CCT Total # of Minutes Spent Total Time Spent with Patient: Total time spent is greater than 50% in coordination of care (as documented) at patient's floor/unit and/or counseling patient:
[2021-10-25 04:01] LABS: Basophils # (auto) 0.04 K/uL (0-0.2); Basophils % (auto) 0.5 %; Eosinophils # (auto) 0.04 K/uL (0-0.50); Eosinophils % (auto) 0.5 %; Hematocrit (blood only) 39.1 % (34.1-44.9); Hemoglobin 12.7 g/dl (12.0-16.0); Immature Granulocytes # (auto) 0.02 K/uL (0.00-0.02); Immature Granulocytes % (auto) 0.2 %; Lymphocytes # (auto) 2.72 K/uL (1.2-3.4); Lymphocytes % (auto) 31.7 %; Mean Corpuscular Hemoglobin 28.7 pg (25.0-34.0); Mean Corpuscular Hgb Conc 32.5 g/dL (32.0-36.0); Mean Corpuscular Volume 88.5 fL (80.0-100.0); Mean Platelet Volume 8.7 fL (9.4-12.3); Monocytes # (auto) 0.58 K/uL (0.24-0.82); Monocytes % (auto) 6.8 %; Neutrophils # (auto) 5.18 K/uL (1.4-6.5); Neutrophils % (auto) 60.3 %; Platelet Count 232 K/uL (130-400); RDW Coefficient of Variation 13.7 % (11.5-14.5); RDW Standard Deviation 44.4 fL (36.4-46.3); Red Blood Count 4.42 M/uL (3.93-5.22); White Blood Count 8.58 K/ul (4.8-10.8)
[2021-10-25 04:25] LABS: Albumin Globulin Ratio 1.2 (0.9-2); Albumin Level 3.7 gm/dl (3.4-5.0); BUN Creatinine Ratio 22.1 (10-20); Bilirubin,Total 0.7 mg/dl (0.2-1.0); Calcium 8.9 mg/dl (8.5-10.1); Creatinine Clr Calc Pharmacy 34.1 ml/min; Est GFR (African American) 52.8 ml/min; Est GFR (Non-African American) 45.5 ml/min; Globulin 3.1 gm/dl (2.5-4.0); Potassium 3.9 mmol/L (3.5-5.1); Total Protein 6.8 gm/dl (6.0-8.3)
[2021-10-25 04:27] LABS: Partial Thromboplastin Ratio 3.6
--- NOTE | 2021-10-25 04:42 | Billing Data ---
Date of Service October 25, 2021 Coding Level of Care Code Critical Care 1st - mins
--- NOTE | 2021-10-25 06:23 | XRay Report ---
XR chest 1V portable HISTORY: 81 years-old Female Chest Pain . Acute chest pain with shortness of breath COMPARISON: CTA chest of same day TECHNIQUE: Portable AP view of the chest FINDINGS: Cardiac silhouette is mildly enlarged. Trace left pleural effusion. No pneumothorax. Intralobular sep anh thickening with pulmonary vascular congestion and ill-defined left greater than right opacities. Degenerative changes of the shoulders and spine. IMPRESSION: 1. Cardiomegaly with pulmonary edema. 2. Trace left pleural effusion. ACT 112: Negative or not required by law. The above report was generated using voice recognition software. It may contain grammatical, syntax o r spelling errors. Electronically signed by: Dominik Alvarez M.D. 10/25/2021 6:21 AM
[2021-10-25] MEDS: ASPIRIN 81 MG ECTAB PO SCH (07:30)
[2021-10-25] MEDS: ATORVASTATIN 40 MG TAB PO SCH (07:30)
--- NOTE | 2021-10-25 08:36 | CT Scan Report ---
CT angio chest PE protocol CT DOSE: 309.63 mGy.cm HISTORY: 81 years-old Female with PE. Acute shortness of breath TECHNIQUE: Multiple CTA images of the chest were obtained after the intravenous administration of 114 ml Optiray. Coronal and sagittal MIPS were obtained from the axial data set and were submitted for review. All measurements were obtained according to NASCET criteria. A dose lowering technique was u tilized adhering to the principles of ALARA. COMPARISON: Chest radiograph of same day FINDINGS: CTA: Mild cardiomegaly without pericardial effusion. Atherosclerosis of the thoracic aorta without aneurys m or dissection. Unremarkable pulmonary artery. No filling defects identified to suggest thromboembol ic disease. CT CHEST: Unremarkable thyroid. Nonspecific mildly enlarged mediastinal and subcarinal lymph nodes measuring up to 1.2 cm in short axis. Trace right and small left pleural effusions. Intralobular septal thickening with bronchial wall thic kening. Dependent predominant bilateral groundglass opacities. There are a few scattered solid pulmon [place] nodules are noted predominantly within the upper lobes measuring up to 4 mm. No acute process of the imaged upper abdomen. No acute fracture. Unremarkable soft tissues. IMPRESSION: 1. Cardiomegaly with interstitial pulmonary edema. 2. Trace right and small left pleural effusions. 3. Mild bilateral groundglass opacities suggest atelectasis with alveolar pulmonary edema. A superimp osed pneumonia is considered less likely. 4. No pulmonary emboli. 5. There are a few scattered low suspicion solid pulmonary nodules measuring up to 4 mm. Please refer to below summary of Fleischner criteria recommendations for follow-up of incidental CT n odules (Winnie Metz, Guidelines for management of small pulmonary nodules detected on CT scans: A sta tement from the Fleischner Society, Radiology 237: [phone].) SOLID NODULES Multiple nodules size: <6 mm * Low risk patients: no routine follow-up * high risk patients: optional CT at 12 months Note: newly detected indeterminate nodule in persons 35 years of age or older. * Low risk patients: minimal or absent history of smoking and/or other known risk factors * high risk patients: history of smoking or of other known risk factors (e.g. first degree relative with lung cancer, or exposure to asbestos, radon, uranium) * if a nodule up to 8 mm is partly solid or is ground glass further follow-up is required after 24 m onths to exclude possible slow growing adenocarcinoma (PABLO) ACT 112: Negative or not required by law. The above report was generated using voice recognition software. It may contain grammatical, syntax o r spelling errors. Electronically signed by: Dominik Alvarez M.D. 10/25/2021 8:33 AM
--- NOTE | 2021-10-25 08:38 | Cardiology Progress Note ---
Date of Service October 25, 2021 Assessment & Plan (1) CAD (coronary artery disease): Plan: --post PCI with LEÓN to mid LAD --no non-culprit disease 2. Preserved LV function--LVEF 50-55% with mid to apical ant/septal hypokinesis 3. Acute heart failure 4. Dyslipidemia Patient chest pain-free. Hemodynamically and electrically stable. No signs of heart failure on exam. No apparent access site complications. Post procedure labs stable Echocardiogram shows preserved LV function with distal LAD distribution hypokinesis, no valve pathology. IVC flat Recommendations -- Trend trop until peak -- Continue DAPT with ASA/Clopidogrel -- Start metoprolol 12.5 BID. ARB as BP allows -- PRN lasix on discharge -- Continue statin Continue to monitor on telemetry today. Likely discharge tomorrow morning. Admission and Anticipated Discharge Date Admission Date: October 25, 2021 Subjective Feeling well this morning. No recurrent chest pain. Breathing comfortably. No significant pain at access site. Telemetry reviewedno events. Review of Systems Review of Systems: All systems reviewed & are unremarkable except as noted in HPI & below Physical Exam Physical Exam: General: Comfortable HEENT: Sclerae anicteric Lungs: Clear anteriorly Cardiac: Distant heart sounds regular rate and rhythm, no murmurs. Vascular: Right radial artery access site with no ecchymosis, hematoma. Distal pulse and sensation intact. Abdomen: Soft, nontender Extremities: Well perfused, no peripheral edema Neuro: Nonfocal Psych: Alert orient x3, normal affect and mood Results & Data ([facility]) Vital Signs (Past 12 Hours) Vital Signs Temp Pulse Pulse Resp BP BP BP 10/25/21 05:52 78 16 98/60 L 10/25/21 04:52 74 16 100/65 10/25/21 01:25 77 10/25/21 03:52 77 16 103/63 10/25/21 04:06 98.2 F 80 17 96/60 L 10/25/21 03:52 98.2 F 81 17 91/55 L 10/25/21 02:52 78 16 106/65 10/25/21 01:22 10/25/21 02:22 98.1 F 77 17 116/71 10/25/21 01:22 97.7 F 72 16 130/78 10/25/21 01:52 98.2 F 73 17 118/69 10/25/21 01:37 80 16 112/74 10/25/21 01:22 97.7 F 72 16 130/78 10/24/21 23:45 82 28 H 10/24/21 23:45 122/76 10/24/21 23:30 86 22 10/24/21 23:30 124/76 10/24/21 23:15 83 24 10/24/21 23:15 126/77 10/24/21 23:00 91 H 23 10/24/21 23:00 120/78 10/24/21 22:45 90 23 10/24/21 22:45 140/91 10/24/21 22:30 91 H 25 H 10/24/21 22:30 132/102 H 10/24/21 22:15 91 H 17 10/24/21 22:15 136/81 10/24/21 22:00 95 H 29 H 10/24/21 22:00 144/89 H 10/24/21 21:45 146/81 H 10/24/21 21:45 102 H 27 H 10/24/21 21:30 91 H 29 H 10/24/21 21:30 151/95 H 10/24/21 21:20 90 26 H 10/24/21 21:17 174/85 H 10/24/21 21:17 88 23 10/24/21 21:16 169/115 H 10/24/21 21:16 93 H 23 10/24/21 21:10 99 H 20 10/24/21 21:03 14 10/24/21 21:03 148/120 H 10/24/21 21:02 99 H 15 10/24/21 20:46 86 24 10/24/21 21:38 89 33 H 10/24/21 20:45 151/79 H 10/24/21 20:45 93 H 28 H Pulse Ox O2 Del Method O2 Flow Rate FiO2 10/25/21 05:52 90 Nasal Cannula 1 10/25/21 04:52 95 Nasal Cannula 1 10/25/21 01:25 10/25/21 03:52 91 Nasal Cannula 1 10/25/21 04:06 93 Nasal Cannula 1 10/25/21 03:52 90 Room Air 10/25/21 02:52 91 Room Air 10/25/21 01:22 Room Air 10/25/21 02:22 94 Room Air 10/25/21 01:22 91 Room Air 10/25/21 01:52 91 Room Air 10/25/21 01:37 91 Room Air 10/25/21 01:22 91 Room Air 10/24/21 23:45 95 Nasal Cannula 4 10/24/21 23:45 10/24/21 23:30 96 10/24/21 23:30 10/24/21 23:15 97 10/24/21 23:15 10/24/21 23:00 97 10/24/21 23:00 10/24/21 22:45 97 10/24/21 22:45 10/24/21 22:30 95 10/24/21 22:30 10/24/21 22:15 95 10/24/21 22:15 10/24/21 22:00 93 10/24/21 22:00 10/24/21 21:45 10/24/21 21:45 97 CPAP 10/24/21 21:30 99 10/24/21 21:30 10/24/21 21:20 98 10/24/21 21:17 10/24/21 21:17 99 10/24/21 21:16 10/24/21 21:16 97 10/24/21 21:10 97 10/24/21 21:03 90 10/24/21 21:03 10/24/21 21:02 93 10/24/21 20:46 95 10/24/21 21:38 97 35 10/24/21 20:45 10/24/21 20:45 93 PG Care Time/CCT Total # of Minutes Spent Total Time Spent with Patient: Total time spent is greater than 50% in coordination of care (as documented) at patient's floor/unit and/or counseling patient: Coding Level of Care Code 55405 Subseq Hosp Care Lvl 3 Diagnoses CAD (coronary artery disease) I25.10
[2021-10-25] MEDS: LOSARTAN POTASSIUM 25 MG TAB PO SCH (08:47)
[2021-10-25] MEDS: METOPROLOL TARTRATE 25 MG TAB PO SCH ×2 (08:47→20:38)
[2021-10-25 08:52] LABS: Estimated Average Glucose 123 mg/dl; Hemoglobin A1C 5.9 % (4.5-5.6)
--- NOTE | 2021-10-25 09:53 | Hospitalist Progress Note ---
Date of Service October 25, 2021 Assessment & Plan (1) Non-ST elevation (NSTEMI) myocardial infarction: Plan: Substernal chest pain worsened with exertion ongoing 10 hours [employer], subsequently associated with SOB/orthopnea while in the ED. - S/p 1 LEÓN to the LAD on 10/25 - Continue ASA, Plavix, beta-surjit, statin, and ARB - Likely d/c tomorrow if feeling well. (2) Acute respiratory failure with hypoxia: Plan: Acute Hypoxic Respiratory Failure - Interval development of AHRF following arrival at ED, associated with respiratory distress and orthopnea - CTA: See above. No PE. Pulmonary Edema - Suspect secondary to acute CHF, likely d/t ACS - Lasix 40mg IV x 1 given in ED - Resolved at this time with cath and stent. Admission and Anticipated Discharge Date Admission Date: October 25, 2021 Subjective Doing well this AM. No chest pain. No shortness of breath. No symptoms from last night. Has been up and around without issue. Reports no fevers/chills, chest pain, shortness of breath, abdominal pain, nausea, or vomiting. Physical Exam Constitutional: WD/WN, vitals as above Eyes: EOM intact bilaterally; no conjunctival abnormality ENMT: external ear and nose normal, oropharynx normal Neck: trachea midline, no thyromegaly normal visual inspection Respiratory: normal respiratory effort, lungs clear to auscultation no respiratory distress Cardiovascular: RRR, no murmur, no edema Gastrointestinal (Abdomen): Inspection/Auscultation: abdomen normal to inspection; abdomen not distended Musculoskeletal: no cyanosis or clubbing, extremities motor strength 5/5 Skin: no rashes, warm and dry Right wrist without issue. Bandage in place. No bruit. NV intact fingers. Neurologic: moves all extremities and awake Psychiatric: Orientation: alert, oriented to person and cooperative Results & Data Results & Data ([facility]) Vital Signs (Past 12 Hours) Vital Signs Temp Pulse Pulse Resp BP BP BP 10/25/21 08:31 76 10/25/21 08:31 36.2 C L 73 14 97/59 L 10/25/21 05:52 78 16 98/60 L 10/25/21 04:52 74 16 100/65 10/25/21 01:25 77 10/25/21 03:52 77 16 103/63 10/25/21 04:06 36.8 C 80 17 96/60 L 10/25/21 03:52 36.8 C 81 17 91/55 L 10/25/21 02:52 78 16 106/65 10/25/21 01:22 10/25/21 02:22 36.7 C 77 17 116/71 10/25/21 01:22 36.5 C 72 16 130/78 10/25/21 01:52 36.8 C 73 17 118/69 10/25/21 01:37 80 16 112/74 10/25/21 01:22 36.5 C 72 16 130/78 10/24/21 23:45 82 28 H 10/24/21 23:45 122/76 10/24/21 23:30 86 22 10/24/21 23:30 124/76 10/24/21 23:15 83 24 10/24/21 23:15 126/77 10/24/21 23:00 91 H 23 10/24/21 23:00 120/78 10/24/21 22:45 90 23 10/24/21 22:45 140/91 10/24/21 22:30 91 H 25 H 10/24/21 22:30 132/102 H 10/24/21 22:15 91 H 17 10/24/21 22:15 136/81 10/24/21 22:00 95 H 29 H 10/24/21 22:00 144/89 H Pulse Ox O2 Del Method O2 Flow Rate 10/25/21 08:31 10/25/21 08:31 92 Room Air 10/25/21 05:52 90 Nasal Cannula 1 10/25/21 04:52 95 Nasal Cannula 1 10/25/21 01:25 10/25/21 03:52 91 Nasal Cannula 1 10/25/21 04:06 93 Nasal Cannula 1 10/25/21 03:52 90 Room Air 10/25/21 02:52 91 Room Air 10/25/21 01:22 Room Air 10/25/21 02:22 94 Room Air 10/25/21 01:22 91 Room Air 10/25/21 01:52 91 Room Air 10/25/21 01:37 91 Room Air 10/25/21 01:22 91 Room Air 10/24/21 23:45 95 Nasal Cannula 4 10/24/21 23:45 10/24/21 23:30 96 10/24/21 23:30 10/24/21 23:15 97 10/24/21 23:15 10/24/21 23:00 97 10/24/21 23:00 10/24/21 22:45 97 10/24/21 22:45 10/24/21 22:30 95 10/24/21 22:30 10/24/21 22:15 95 10/24/21 22:15 10/24/21 22:00 93 10/24/21 22:00 PG Care Time/CCT Total # of Minutes Spent Total Time Spent with Patient: Total time spent is greater than 50% in coordination of care (as documented) at patient's floor/unit and/or counseling patient: Coding Level of Care Code 88955 Subseq Hosp Care Lvl 2 Diagnoses Non-ST elevation (NSTEMI) myocardial infarction I21.4 Acute respiratory failure with hypoxia J96.01
[2021-10-25] MEDS: CLOPIDOGREL BISULFATE 75 MG TAB PO SCH (11:20)
--- NOTE | 2021-10-25 13:06 | Electrocardiogram Report ---
Test Reason : Blood Pressure : / mmHG Vent. Rate : 090 BPM Atrial Rate : 090 BPM P-R Int : 208 ms QRS Dur : 068 ms QT Int : 340 ms P-R-T Axes : 073 032 035 degrees QTc Int : 415 ms Poor data quality, interpretation may be adversely affected Normal sinus rhythm Normal ECG No previous ECGs available Confirmed by Aries Jones ([id number]) on 10/25/2021 1:05:59 PM Referred By: REFERRED SELF Confirmed By:Aries Jones
--- NOTE | 2021-10-25 13:07 | Electrocardiogram Report ---
Test Reason : Blood Pressure : / mmHG Vent. Rate : 089 BPM Atrial Rate : 089 BPM P-R Int : 212 ms QRS Dur : 076 ms QT Int : 344 ms P-R-T Axes : 055 046 001 degrees QTc Int : 418 ms Sinus rhythm with sinus arrhythmia with 1st degree A-V block Nonspecific T wave abnormality Abnormal ECG When compared with ECG of 24-OCT-2021 19:18, (unconfirmed) No significant change was found Confirmed by Aries Jones ([id number]) on 10/25/2021 1:07:25 PM Referred By: REFERRED SELF Confirmed By:Aries Jones
--- NOTE | 2021-10-25 13:09 | Electrocardiogram Report ---
Test Reason : Blood Pressure : / mmHG Vent. Rate : 090 BPM Atrial Rate : 090 BPM P-R Int : 222 ms QRS Dur : 060 ms QT Int : 356 ms P-R-T Axes : 098 043 097 degrees QTc Int : 435 ms Sinus rhythm with 1st degree A-V block Septal infarct , age undetermined Abnormal ECG When compared with ECG of 24-OCT-2021 19:56, (unconfirmed) ST elevation now present in Inferior leads Confirmed by Aries Jones ([id number]) on 10/25/2021 1:08:48 PM Referred By: REFERRED SELF Confirmed By:Aries Jones
--- NOTE | 2021-10-25 13:12 | Electrocardiogram Report ---
Test Reason : Blood Pressure : / mmHG Vent. Rate : 084 BPM Atrial Rate : 084 BPM P-R Int : 218 ms QRS Dur : 060 ms QT Int : 358 ms P-R-T Axes : 073 026 069 degrees QTc Int : 423 ms Poor data quality, interpretation may be adversely affected Sinus rhythm with 1st degree A-V block Anterior infarct (cited on or before 24-OCT-2021) Abnormal ECG When compared with ECG of 24-OCT-2021 21:24, (unconfirmed) No significant change was found Confirmed by Aries Jones ([id number]) on 10/25/2021 1:12:26 PM Referred By: REFERRED SELF Confirmed By:Aries Jones
[2021-10-26 06:37] LABS: Hematocrit (blood only) 33.7 % (34.1-44.9); Hemoglobin 11.5 g/dl (12.0-16.0); Mean Corpuscular Hemoglobin 29.5 pg (25.0-34.0); Mean Corpuscular Hgb Conc 34.1 g/dL (32.0-36.0); Mean Corpuscular Volume 86.4 fL (80.0-100.0); Mean Platelet Volume 8.9 fL (9.4-12.3); Platelet Count 207 K/uL (130-400); RDW Coefficient of Variation 13.7 % (11.5-14.5); RDW Standard Deviation 42.9 fL (36.4-46.3); White Blood Count 6.31 K/ul (4.8-10.8)
[2021-10-26 06:57] LABS: BUN Creatinine Ratio 25.5 (10-20); Calcium 8.4 mg/dl (8.5-10.1); Creatinine Clr Calc Pharmacy 28.4 ml/min; Est GFR (African American) 41.8 ml/min; Est GFR (Non-African American) 36.1 ml/min; Potassium 3.9 mmol/L (3.5-5.1)
[2021-10-26 07:10] LABS: Troponin I High Sensitivity 1935.9 pg/ml (0-14)
[2021-10-26] MEDS: LOSARTAN POTASSIUM 25 MG TAB PO SCH (08:38)
[2021-10-26] MEDS: METOPROLOL TARTRATE 25 MG TAB PO SCH (08:38)
[2021-10-26] MEDS: ATORVASTATIN 40 MG TAB PO SCH (08:39)
[2021-10-26] MEDS: CLOPIDOGREL BISULFATE 75 MG TAB PO SCH (08:39)
[2021-10-26] MEDS: ASPIRIN 81 MG ECTAB PO SCH (08:39)
--- NOTE | 2021-10-26 09:23 | Cardiology Progress Note ---
Date of Service October 26, 2021 Assessment & Plan (1) CAD (coronary artery disease): Plan: --post PCI with LEÓN to mid LAD --no non-culprit disease 2. Preserved LV function--LVEF 50-55% with mid to apical ant/septal hypokinesis 3. Acute heart failure 4. Dyslipidemia 5. Transient AF with RVR 6. MUMTAZ 7. Anemia Patient chest pain-free. Troponin peaked. Hemodynamically and electrically stable. No signs of heart failure on exam. No apparent access site complications. From a cardiac standpoint okay with discharge today. With transient atrial fibrillation recommend discharge on anticoagulation for at least a month and additional ambulatory monitoring at that time. Discharged on Dual therapy with clopidogrel and Eliquis. Stop aspirin Continue losartan, switch metoprolol to Toprol-XL 25 mg daily Continue atorvastatin 40 mg Follow-up with me in 1 week with repeat BMP. Admission and Anticipated Discharge Date Admission Date: October 25, 2021 Subjective Feeling well this morning. No recurrent chest pain. Breathing comfortably. No significant pain at access site. Telemetry reviewedYesterday around 1650 had ~15 minute episode of AF with heart rates in 130 - asymptomatic, converted spontaneously Review of Systems Review of Systems: All systems reviewed & are unremarkable except as noted in HPI & below Physical Exam Physical Exam: General: Comfortable HEENT: Sclerae anicteric Lungs: Clear anteriorly Cardiac: Distant heart sounds regular rate and rhythm, no murmurs. Vascular: Right radial artery access site with no ecchymosis, hematoma. Distal pulse and sensation intact. Abdomen: Soft, nontender Extremities: Well perfused, no peripheral edema Neuro: Nonfocal Psych: Alert orient x3, normal affect and mood Results & Data ([facility]) Vital Signs (Past 12 Hours) Vital Signs Temp Pulse Pulse Resp BP Pulse Ox O2 Del Method 10/26/21 07:27 98.2 F 66 17 116/69 98 Room Air 10/26/21 02:44 98.6 F 74 20 106/68 95 Room Air 10/25/21 22:50 74 10/25/21 22:34 97.7 F 78 20 112/62 92 Room Air PG Care Time/CCT Total # of Minutes Spent Total Time Spent with Patient: Total time spent is greater than 50% in coordination of care (as documented) at patient's floor/unit and/or counseling patient: Coding Level of Care Code 23266 Subseq Hosp Care Lvl 3 Diagnoses CAD (coronary artery disease) I25.10
[2021-10-26] MEDS ORDERED: APIXABAN 5 MG TABLET PO SCH (09:30)
--- NOTE | 2021-10-26 14:06 | Discharge Summary ---
Date of Service October 26, 2021 Admission HPI Per Admitting Provider Patient is a very pleasant 81-year-old female who presented to [facility] for evaluation of substernal chest pain. 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 She denies ever having this before or any significant heart history. She denies any shortness of breath at that time. When asked if it was worse by exertion, she said "I did not think I was going to make it "walking up the stairs to her congregation because the pain and fatigue got worse. She said it got better with rest. Otherwise, denies any radiation to the arm or face, no recent leg pain, no nausea, vomiting, fever, chills, night sweats, or other symptoms. Patient was recently in [place] where she was traveling extensively on planes, trains, and buses. She denies any history of clots, and again, denies any sort of leg discomfort or swelling. Before today, she felt like she was in her normal health. She had no issues sleeping last night. No PND or orthopnea. No dietary changes. In the ED, patient was initially found to be tachycardic and hypertensive to 94 bpm and 152/74, saturating at 92% on room air. She was brought back to the CT scanner for a CT of the chest, when she reported significant shortness of breath when she lie down. This required initiation of supplemental oxygen. Her shortness of breath improved with sitting up. Her admission labs were notable for ABGpH 7.41/PCO2 31/PO2 92/P HCO3 20 on 35% CPAP. Her BMP demonstrated BUN 25/creatinine 1.09. Her initial troponin was 1513. Chest x-ray had the appearance of pulmonary edema, as did the CTA. CTA stat rad revealed: "". By comparison to ECG taken at 1917, repeat ECG at 2116 appears to demonstrate small interval increases in the ST segment in V2, V3. She was given Nitropaste, Lasix 40 mg IV, started on heparin with IV bolus. Principal Diagnosis NSTEMI Discharge Exam CV: RRR, no m/r/g, no edema L: CTA b/l Discharge Data Allergies Allergy/AdvReac Type Severity Reaction Status Date / Time Penicillins Allergy Mild RASH Verified 03/15/21 09:46 Poison Jeb Extract/Poison Allergy Unknown POISON Uncoded 03/15/21 09:46 [place] Extra JEB-RASH Consultations 10/24/21 21:32 Consult Cardiology Routine 10/25/21 01:11 Consult Cardiac Rehabilitation Routine Procedures Performed Operation Date: 10/25/21 00:15 Actual Procedures p Cineradiography w/Routine Exam - Andi Arce MD p Aspiration/PCI w/LEÓN for Stemi - Andi Arce MD s Cath, Left with Cors and Vent - Andi Arce MD Ordered Studies 10/24/21 20:22 CT angio chest PE protocol Urgent 10/25/21 00:05 CL Cath Imgs for PACS use only Stat Hospital Course (1) Non-ST elevation (NSTEMI) myocardial infarction: Substernal chest pain worsened with exertion ongoing 10 hours [employer], subsequently associated with SOB/orthopnea while in the ED. - S/p 1 LEÓN to the LAD on 10/25 - Continue Plavix, beta-surjit, statin, and ARB - Eliquis as below - Follow up with Dr. Arce in 1-2 weeks. Right arm restrictions given. (2) Atrial fibrillation: Had approx. 15 minutes of atrial fibrillation on 10/25 in the evening. Asymptomatic. Fairly normal rate (~100 bpm) while in afib. - Discussed with Dr. Arce: * Drop ASA * Add Eliquis x 1 month or so * Holter monitor to be arranged by Dr. Arce to investigate other for other episodes (3) Acute respiratory failure with hypoxia: Acute Hypoxic Respiratory Failure - Interval development of AHRF following arrival at ED, associated with respiratory distress and orthopnea - CTA: See above. No PE. Pulmonary Edema - Suspect secondary to acute AK - Lasix 40mg IV x 1 given in ED - Resolved at this time with cath and stent. Total Time Total Time Spent Total Time Spent (In Minutes): 35 Discharge Plan Discharge Items Patient Disposition: Home - Self-Care Reason For Visit: Heart attack Discharge Diagnosis: Heart attack, episode of atrial fibrillation Activity: Resume your previous activity Lifting: No more than 5 pounds Lifting Comment: No more than 5 lbs in your right hand/arm until cleared by Dr. Arce Non-emergency contact: Primary Care Provider Call non-emergency contact if: your symptoms worsen Follow-up/Referrals: Andi Arce MD [Physician] - (Please see Dr. Arce in the office.) Aurora Dickson MD [Primary Care Provider] - 10/29/21 1:00 pm Diet: Heart Healthy Addtl Attending Provider Instructions: Ms. Hackett, You were admitted to the hospital with a heart attack. Luckily, Dr. Arce put in a stent, and your heart seems to be doing very well with a high chance of full recovery. While you were here, we did notice a brief episode of atrial fibrillation ("afib"). As we discussed, this can increase your risk of stroke, and Dr. Arce would like you to be on a blood thinner to help prevent this risk. I know you are not a big fan of medication, but for now, to keep your stent & heart healthy, you really need to take the followin) Plavix (clopidogrel) - This helps keep your stent open. 2) Apixaban (Eliquis) - This helps prevent stroke after the afib episode. This can hopefully be changed to aspirin in 1 month. 3) Metoprolol - This lowers stress on your heart and has been shown to reduce the risk of another heart attack. 4) Losartan - This help your heart heal after the heart attack. 5) Atorvastatin - This lowers your cholesterol and stabilizes any plaques in the body. It has been shown to reduce heart attacks and risk of stroke. We *only* ever prescribe medications when we think the benefits are greater than any down sides (risks). If you have questions or concerns about any of the medications, please continue taking them and ask your new PCP on your visit this week. Please see Dr. Arce in 1-2 weeks to see how you are doing and to make sure your right wrist is healing well. He will also arrange the heart monitor to see if you have any more episodes of atrial fibrillation. Pending Studies at Discharge: No Stand-Alone Forms: My [facility] [email or web address], Smoking Cessation Medications and DC Order Prescriptions: New Eliquis 5 mg Tablet 5 mg PO BID Qty: 60 0RF clopidogrel 75 mg Tablet 75 mg PO QAM Qty: 30 0RF atorvastatin 40 mg Tablet 40 mg PO HS Qty: 30 0RF losartan 25 mg Tablet 25 mg PO HS Qty: 30 0RF metoprolol succinate 25 mg Tablet Extended Release 24 Hr 25 mg PO QAM Qty: 30 0RF No Action No Known Home Medications Discharge Orders: Discharge Order (Routine); Ordered 10/26/21 Ordered By: Fausto Gorman Admission Data Admit Date/Time: 10/25/21 00:23 Attending Provider: Fausto Gorman Admit Provider: Darrick Donovan Primary Care Provider: Aurora Dickson Other Providers: Alexx Mosqueda ; Aime Hayes ; George Fisher ; Jordan Gaines ; Aries Jones ; Pavel Fernandez Jr ; Sabino Molina ; Kalpana De La Torre ; Sis Thompson ; Andi Arce ; Ab Lyman ; Dajuan Mclaughlin ; Roxana Mark ; Miriam Galdamez ; Seth Lira ; Andrés Caldwell ; Ernesto Sanchez ; Jordan Savage V. ; Ricardo Powers Other Interventions: Discharge Summary Assessment (RN) Last Done: 10/26/21 11:07 Coding Level of Care Code D/C DAY MANAGEMENT >30 MINS Diagnoses Non-ST elevation (NSTEMI) myocardial infarction I21.4 Atrial fibrillation I48.91 Acute respiratory failure with hypoxia J96.01
--- NOTE | 2021-10-26 15:59 | Electrocardiogram Report ---
Test Reason : Blood Pressure : / mmHG Vent. Rate : 080 BPM Atrial Rate : 080 BPM P-R Int : 216 ms QRS Dur : 078 ms QT Int : 398 ms P-R-T Axes : 047 040 137 degrees QTc Int : 459 ms Sinus rhythm with sinus arrhythmia with 1st degree A-V block T wave abnormality, consider anterior ischemia Abnormal ECG When compared with ECG of 24-OCT-2021 23:14, Nonspecific T wave abnormality now evident in Inferior leads Confirmed by Aries Jones ([id number]) on 10/26/2021 3:59:29 PM Referred By: REFERRED SELF Confirmed By:Aries Jones
--- NOTE | 2021-10-26 16:03 | Electrocardiogram Report ---
Test Reason : Blood Pressure : / mmHG Vent. Rate : 119 BPM Atrial Rate : 094 BPM P-R Int : 000 ms QRS Dur : 076 ms QT Int : 328 ms P-R-T Axes : 000 032 227 degrees QTc Int : 461 ms Atrial fibrillation with rapid ventricular response Possible Anterior infarct , age undetermined Abnormal ECG When compared with ECG of 25-OCT-2021 15:12, (unconfirmed) Atrial fibrillation has replaced Sinus rhythm Vent. rate has increased BY 39 BPM Confirmed by Aries Jones ([id number]) on 10/26/2021 4:02:47 PM Referred By: REFERRED SELF Confirmed By:Aries Jones
[2021-10-27] MEDS ORDERED: METOPROLOL SUCC 25MG EXT REL TAB PO SCH (09:00)
== END 2021-10-26 12:12 | disposition home or self-care (01) | DRG 246 ==
LOC: ED 19:00 → 4W 10-25 00:22 → CC 10-25 00:22 → SUATTDRO 10-25 00:23 → 4W 10-25 00:23